=== PATIENT | female | born 1960 | race Caucasian/White ===

== ENCOUNTER → 2020-07-18 | Outpatient (CLI) | payer MEDICARE ==
[~2020-07-18] MED LIST: AMLO2.5T45 PO; CYCL10TA7 PO; ERGO2000 PO; FLUO40CA49 PO; HYDR-4005 PO; NAPR500T7 PO; OMEP40CA12 PO; PREG300C PO; SUMA50TA16 PO; TIZA4CAP6 PO
== END | disposition home or self-care (01) ==
LOC: MRI 10:36
PROVIDERS: ATTEND Neurological Surgery
DX: M47.816 Spondylosis without myelopathy or radiculopathy, lumbar region (principal); M48.061 Spinal stenosis, lumbar region without neurogenic claudication
CPT/HCPCS: 72148

== ENCOUNTER → 2020-10-18 | Outpatient (CLI) | payer MEDICARE | END | disposition home or self-care (01) | LOC: MRI 09:46 | PROVIDERS: ATTEND Neurological Surgery | DX: M43.22 Fusion of spine, cervical region (principal) | CPT/HCPCS: 72146 ==